=== PATIENT | female | born 1980 | race African-American/Black ===

== ENCOUNTER 2019-03-11 17:39 | Emergency (ER) | payer MEDICAID ==
[~2019-03-11] VITALS: Ht 167.6 cm; Wt 104.5 kg
[2019-03-11 17:45] VITALS: Ht 167.6 cm; Wt 104.5 kg
[2019-03-11] MEDS ORDERED: SERTRALINE (17:47)
[2019-03-11] MEDS ORDERED: GABAPENTIN (17:47)
[2019-03-11] MEDS ORDERED: BP MED (17:47)
--- NOTE | 2019-03-11 18:13 | NUR ---
ACCORDING TO THE SUICIDAL ASSESSMENT SHE SCORES LOW ON THE SI SCALE. SHE IS IN PAIN AND SHE IS NAUSEATED AND SHE JUST WANTS TO FEEL BETTER. SHE ADMITS TO DEPRESSION AND ANXIETY. PROVIDED THE PATIENT A COPY OF THE SUICIDE RESOURCES.
[2019-03-11 18:30] LABS: HEMATOCRIT 42.7 % (36.0-48.0); HEMOGLOBIN 14.2 g/dL (12-16); MCH 27.7 pg (26.0-34.0); MCHC 33.3 g/dL (31.0-37.0); MCV 83.2 fL (80.0-100.0); MEAN PLATELET VOLUME 10.7 fL (7.4-10.4); PLATELET COUNT 434 10x3/uL (130-400); RBC 5.13 10x6/uL (4.00-5.40); RDW 15.3 % (11.5-14.5); WBC 7.7 10x3/uL (4.8-10.8)
[2019-03-11 19:02] LABS: ANION GAP 15.6 mmol/L (8-16); CALCIUM 9.7 mg/dL (8.5-10.1); CARBON DIOXIDE 26.8 mmol/L (21.0-32.0); CREATININE - SERUM 1.7 mg/dL (0.6-1.3); POTASSIUM - SERUM 3.4 mmol/L (3.5-5.1)
[2019-03-11 19:07] LABS: ALBUMIN 4.3 g/dL (3.4-5.0); BILIRUBIN - TOTAL 0.51 mg/dL (0.2-1.3); PROTEIN - SERUM 9.8 g/dL (6.4-8.2); TROPONIN-I 0.02 ng/mL (0.000-0.060)
[2019-03-11 19:14] LABS: APPEARANCE HAZY (CLEAR); BILIRUBIN NEGATIVE (NEGATIVE); COLOR YELLOW (YELLOW); GLUCOSE NEGATIVE (NEGATIVE); KETONE NEGATIVE (NEGATIVE); NITRITE NEGATIVE (NEGATIVE); PROTEIN 1+ mg/dL (NEGATIVE); UROBILINOGEN NORMAL (NORMAL)
[2019-03-11 19:15] LABS: BACTERIA MANY /hpf (NEGATIVE); EPITHELIAL CELLS 0-5 /hpf (0-5); MUCUS <1+ /lpf (NONE SEEN)
[2019-03-11 19:16] LABS: HCG URINE NEGATIVE (NEGATIVE)
[2019-03-11 19:24] LABS: LYMPHOCYTES 30 % (15-50); MONOCYTES 13 % (2-11); NEUTROPHILS 56 % (40-80); PLATELET ESTIMATE NORMAL
[2019-03-11] MEDS ORDERED: LEVOFLOXACIN500 MG PO (20:44)
[2019-03-11] MEDS ORDERED: PHENAZOPYRIDIN100 MG PO (20:44)
[2019-03-11 20:55] VITALS: BP 126/86
== END 2019-03-11 20:55 | disposition home or self-care (01) ==
LOC: D.ER 17:39
PROVIDERS: Family Medicine
DX: N39.0 Urinary tract infection, site not specified (principal); A59.9 Trichomoniasis, unspecified; I10 Essential (primary) hypertension; Z72.0 Tobacco use; J45.909 Unspecified asthma, uncomplicated